=== PATIENT | female | born 1960 | race Caucasian/White ===

== ENCOUNTER 2024-09-12 05:38 | Day surgery (SDC) | payer MEDICARE, OTHER ==
[2024-09-08 15:34] LABS: BASOPHILS % (AUTO) 0.3 % (0-1); EOSINOPHILS # (AUTO) 0.2 X10'3 (0-0.9); EOSINOPHILS % (AUTO) 2.9 % (0-6); LYMPHOCYTES # (AUTO) 1.7 X10'3 (1.1-4.8); LYMPHOCYTES % (AUTO) 21.4 % (21-51); MEAN CORPUSCULAR HEMOGLOBIN 29.4 PG (27.0-31.0); MEAN CORPUSCULAR HGB CONC 32.8 g/dL (33.0-36.5); MEAN CORPUSCULAR VOLUME 89.6 FL (78-98); MEAN PLATELET VOLUME 8.5 FL (7.4-10.4); MONOCYTES # (AUTO) 0.4 X10'3 (0-0.9); MONOCYTES % (AUTO) 5.3 % (2-12); NEUTROPHILS # (AUTO) 5.6 X10'3 (1.8-7.7); NEUTROPHILS % (AUTO) 70.1 % (42-75); PRE OP HEMATOCRIT 40.9 % (35.0-45.0); PRE OP HEMOGLOBIN 13.4 g/dL (12.0-16.0); PRE OP PLATELET COUNT 243 X10'3 (140-440); RED BLOOD COUNT 4.57 X10'6 (4.20-5.60); RED CELL DISTRIBUTION WIDTH 14.7 % (11.5-14.5)
[2024-09-08 15:48] LABS: ALBUMIN 4.1 G/DL (3.4-5.0); ALBUMIN/GLOBULIN RATIO 1.4 (1.1-1.5); ALKALINE PHOSPHATASE 82 IU/L (46-116); BLOOD UREA NITROGEN 13 MG/DL (7-18); BUN/CREATININE RATIO 15.1 (10.0-20.0); CALCIUM 9.2 MG/DL (8.5-10.1); CHLORIDE 106 MMOL/L (99-107); CREATININE 0.86 MG/DL (0.40-0.90); PRE OP ALT 24 U/L (30-65); PRE OP ANION GAP 5 (8-16); PRE OP AST 17 U/L (10-37); PRE OP BILIRUB, TOTAL 0.8 MG/DL (0.0-1.0); PRE OP GLUCOSE 110 MG/DL (70-104); PRE OP SODIUM 139 MMOL/L (135-145); TOTAL CARBON DIOXIDE 27.9 MMOL/L (24-32); TOTAL PROTEIN 7.1 G/DL (6.4-8.2); eGFR 66 ML/MIN
[2024-09-12] VITALS (8 sets, daily range): BP systolic 124–134; BP diastolic 73–98; PULSE 67–82; RESP 10–18; TEMP 98.8; O2SAT 97–100
[~2024-09-12] VITALS: Ht 157.5 cm; Wt 66.0 kg
[~2024-09-12 05:38] MED LIST: ATOR40TA72 PO; CALCIUM PO; CHOL100025 PO; METF-900 PO; MULT-1085 PO; [UNRECOGNIZED DRUG - OTHER] PO
[2024-09-12] MEDS: famotidine 20mg tablet PO ONE (06:00)
[2024-09-12] MEDS: ringers solution, lacted 1,000 ML IV SCH (06:01)
[2024-09-12] MEDS: ceFAZolin 2gm in dextrose, iso 50 ML IV ONE (06:02)
[2024-09-12] MEDS ORDERED: BUPIVAcaine/PF 2.5mg/ml (0.25%) 10ml vial ONE (06:45)
[2024-09-12] MEDS ORDERED: BUPIVAcaine 0.25% w/Epi /PF 30ml vial ONE (06:45)
[2024-09-12] MEDS ORDERED: LIDOcaine 1% 30ml preserv. free vial ONE (06:45)
[2024-09-12] MEDS ORDERED: LIDOcaine 2% (20mg/ml) 5ml vial ONE (07:07)
[2024-09-12] MEDS ORDERED: propofol inj 20 ML IV ONE (07:07)
[2024-09-12] MEDS ORDERED: fentaNYL/PF 50MCG/1 ML 2ML syringe ONE (07:07)
[2024-09-12] MEDS ORDERED: dexamethasone sod phosphate 4mg/ml inj. ONE (07:07)
[2024-09-12] MEDS ORDERED: ondansetron/PF 4mg/2ml inj ONE (07:07)
[2024-09-12] MEDS ORDERED: midazolam 1 mg/ML 2ml injection ONE (07:07)
[2024-09-12] MEDS ORDERED: acetaminophen 1,000mg/100ml IV 100 ML IV ONE (07:08)
[2024-09-12] MEDS ORDERED: morphine 2 MG/ML inj. syringe IV PRN (07:15)
[2024-09-12] MEDS ORDERED: labetalol 20mg/4ml (5mg/ml) syringe IV PRN (07:15)
[2024-09-12] MEDS ORDERED: ringers solution, lacted 1,000 ML IV SCH (07:15)
[2024-09-12] MEDS ORDERED: fentaNYL/PF 50MCG/1 ML 2ML syringe IV PRN ×2 (07:15)
[2024-09-12] MEDS ORDERED: morphine 4 MG/ML inj SYRINge IV PRN (07:15)
[2024-09-12] MEDS ORDERED: ondansetron/PF 4mg/2ml inj IV PRN (07:15)
[2024-09-12] MEDS ORDERED: hydrALAZINE 20mg/ml inj. IV PRN (07:15)
[2024-09-12] MEDS ORDERED: desflurane 240ml liquid inh. IH ONE (07:40)
== END 2024-09-12 09:03 | disposition home or self-care (01) ==
LOC: PAS 05:38
PROVIDERS: ATTEND Surgery
DX: N64.52 Nipple discharge (principal); N60.12 Diffuse cystic mastopathy of left breast; N60.11 Diffuse cystic mastopathy of right breast; Z80.3 Family history of malignant neoplasm of breast; Z83.3 Family history of diabetes mellitus; Z98.890 Other specified postprocedural states; Z79.899 Other long term (current) drug therapy
CPT/HCPCS: 19120; 36415; 80053; 82948; 85025; 93005; A4215; A4618; A6402; A7000; J0131; J0690; J1100; J2003; J2250; J2405; J2704; J3010; J3490; J7030; J7120; Z7506; Z7512; Z7610; 88307; A6449; S0020